=== PATIENT | female | born 1985 ===

== ENCOUNTER 2017-12-10 14:55 | Emergency (ER) | payer SELFPAY ==
[2017-12-10 15:40] VITALS: BMI 24.2
[2017-12-10 15:46] VITALS: BP 145/87; PULSE 76; RESP 17; TEMP 98.6; O2SAT 99
== END 2017-12-10 15:41 | disposition left against medical advice (07) ==
LOC: C.ER 14:55
DX: Z02.89 Encounter for other administrative examinations (principal); R10.2 Pelvic and perineal pain